=== PATIENT | female | born 1970 | race Caucasian/White ===

== ENCOUNTER 2021-06-16 09:37 | Day surgery (SDC) | payer BC ==
[2021-06-16] MEDS ORDERED: Lidocaine 1% PF 2 ML SDV INJECT ONE (09:38)
[2021-06-16] MEDS ORDERED: Propofol 200 MG/20 ML SDV IV ONE (09:38)
[2021-06-16] MEDS ORDERED: Sodium Chloride 0.9% 10 ML Syringe FLUSH PRN (09:45)
[2021-06-16] MEDS ORDERED: Lactated Ringers 1,000 ML IV SCH (09:45)
== END 2021-06-16 12:00 | disposition home or self-care (01) ==
LOC: FB.SDS 09:37
PROVIDERS: ATTEND Surgery
DX: Z12.11 Encounter for screening for malignant neoplasm of colon (principal); E03.9 Hypothyroidism, unspecified; F41.9 Anxiety disorder, unspecified; K21.9 Gastro-esophageal reflux disease without esophagitis; Z83.71 Family history of colonic polyps; Z90.49 Acquired absence of other specified parts of digestive tract; Z98.890 Other specified postprocedural states; Z79.890 Hormone replacement therapy; Z88.8 Allergy status to other drugs, medicaments and biological substances; Z88.0 Allergy status to penicillin
CPT/HCPCS: 00811-QZ; J2704; J7120